=== PATIENT | female | born 1985 | race Caucasian/White ===

== ENCOUNTER 2023-12-17 17:10 | Emergency (ER) | payer OTHER, SELFPAY ==
[2023-12-17 17:22] VITALS: BP 119/75; PULSE 87; RESP 17; TEMP 36.8; O2SAT 96; BMI 54.6
--- NOTE | 2023-12-17 17:29 | ED_ITS ---
HPI - Back Pain/Injury General: Chief Complaint: Back Pain/Injury Stated Complaint: back pain, wants cortisone shot Time Seen by Provider: 12/17/23 17:28 History of Present Illness: Patient strained her back 2 nights ago while assisted to her on the toilet. Patient's has a history of CVA and requires assistance. Patient since then has had increased pain and discomfort to her low back. Patient has known history of facet arthritis. Review of Systems General: Reports: 10 or more systems reviewed and unremarkable except in HPI and below Musc: Reports: back pain Physical Exam Const: COMMON NORMALS: alert HENMT: COMMON NORMALS: normocephalic HEAD & SCALP: normocephalic Neck/C-Spine: COMMON NORMALS: full ROM Resp: COMMON NORMALS: normal respiratory effort and clear to auscultation bilaterally AUSCULTATION: clear to auscultation bilaterally Cardio: COMMON NORMALS: regular rate and regular rhythm RATE: regular rate RHYTHM: regular rhythm GI: COMMON NORMALS: Soft to palpation and non-tender PALPATION: Yes Soft to palpation Back/Pelvis: COMMON NORMALS: thoracic and lumbar spine normal to inspection Extremity: COMMON NORMALS: full ROM Neuro: SENSORIUM/ORIENTATION: Yes alert Skin: COMMON NORMALS: turgor normal GENERAL SKIN EXAM: turgor normal Course Vital Signs: Vital signs: Vital Signs Temperature 98.3 F 12/17/23 17:22 Pulse Rate 87 12/17/23 17:22 Respiratory Rate 17 12/17/23 17:22 Blood Pressure 119/75 12/17/23 17:22 Pulse Oximetry 96 12/17/23 17:22 Oxygen Delivery Me thod Room Air 12/17/23 17:22 MDM - Back Pain/Injury Medical Decision Making Patient comes in today with increased back pain. Patient has a history of facet arthritis. Patient will receive an injection of steroids at times to help with her back pain. On exam no vertebral tenderness. Patient was all extremities well. Patient ambulates without difficulty. Differential diagnosis facet arthritis, intervertebral disc disease, lumbar strain. Patient was given 30 mg of Toradol and 10 mg of dexamethasone. Patient will continue on diclofenac. Patient reports understanding of care plan and need for follow-up or return to the ER. No radiology studies performed this visit Discharge Plan Discharge Patient Disposition: Home Clinical Impression: Arthritis of facet joint of lumbar spine Low back pain Qualifiers: Chronicity: chronic Back pain laterality: unspecified Sciatica presence: without sciatica Qualified Code(s): M54.50 - Low back pain, unspecified Condition: Stable Prescriptions: New diclofenac sodium 75 mg tablet,delayed release (DR/EC) 75 mg PO BID Qty: 14 0RF Discharge Orders: Discharge ED (Routine); Ordered 12/17/23 Ordered By: Yemi Garza Referrals: Sandro Mi MD [Primary Care Provider] - Discharge Diet: Usual diet Discharge Activity: Increase activity as tolerated Patient Instructions: Back Pain (ED) Activity Restrictions/Additional Instructions: Try to maintain normal activity is much as possible. Use diclofenac for pain and inflammation. Do not use any other NSAIDs while using the diclofenac. Use ice or heat for further pain relief. Continue with routine medications as directed. Follow-up with primary care for further instructions. Thank you for choosing [facility] for your healthcare needs today. Please realize that you were seen in the emergency department and that we are providing you with an emergency medical screening exam and this may not be a complete and all exclusive of all testing and/or medical workup we may need to determine your element or severity of your illness. It is very important that you follow-up as instructed with your primary care provider or specialist for the additional evaluation and to discuss your medical treatment plan. You may return to the emergency department should you have concerns or if your condition changes or worsens in any way. Coding Level of Care Code ED Loan Servicing Specialist for Cinda Santiago
[2023-12-17] MEDS: ketorolac 30 mg/mL INJ IM (17:50)
[2023-12-17] MEDS: dexamethasone 10 mg/mL INJ IM (17:50)
== END 2023-12-17 18:04 | disposition home or self-care (01) ==
PROVIDERS: Emergency Provider Nurse Practitioner Family; PCP Family Medicine
DX: M54.50 Low back pain, unspecified (principal); M47.816 Spondylosis without myelopathy or radiculopathy, lumbar region
CPT/HCPCS: 96372; 99284; J1100; J1885

== ENCOUNTER 2024-03-10 15:29 | Emergency (ER) | payer OTHER, SELFPAY ==
[2024-03-10 16:29] VITALS: BP 129/76; PULSE 96; RESP 18; TEMP 36.8; O2SAT 96; BMI 54.6
== END 2024-03-10 18:58 | disposition left against medical advice (07) ==
PROVIDERS: Emergency Provider Family Medicine; PCP Family Medicine
DX: Z53.21 Procedure and treatment not carried out due to patient leaving prior to being seen by health care provider (principal)

== ENCOUNTER 2024-04-09 16:28 | Emergency (ER) | payer OTHER, SELFPAY ==
[2024-04-09 16:56] VITALS: BP 169/74; PULSE 98; RESP 18; TEMP 36.8; O2SAT 97; BMI 54.6
--- NOTE | 2024-04-09 18:15 | ED_ITS ---
HPI - Back Pain/Injury General: Chief Complaint: Back Pain/Injury Stated Complaint: Back pain Time Seen by Provider: 04/09/24 17:47 Source: patient Mode of arrival: ambulatory Limitations: no limitations History of Present Illness: Patient is a 38-year-old female with history of degenerative disc disease who presents the emergency department with acute on chronic lower back pain beginning today. She states that she has to lift her disabled often, but denies any recent trauma or specific injury where she reports her back pain steadily increasing. States that she was supposed to be referred to pain doctor from primary care, but has not had this happen yet. Reporting severe lower back pain that radiates down her left leg, also reports history of sciatica. Denies any recent MRI or other imaging. She is not reporting any loss of bowel or bladder function, distal numbness or paresthesias, or other concerning symptoms. She is tearful at this time secondary to pain, reporting that the pain is worsened with extension at the back and with lying flat. MD elicited complaint: back pain Pertinent past history: prior back pain Onset (ago): hour(s) Timing: constant Severity: severe Similar Symptoms Previously: Yes Location: lumbar spine Radiation: left upper leg Exacerbating factors: supine positioning Associated symptoms: Deny abdominal pain, chills, fecal incontinence, fever(s), nausea or vomiting Related Data Previous Rx's Medication Instructions Recorded diclofenac sodium 75 mg 75 mg PO BID #14 tabs 12/17/23 tablet,delayed release methocarbamol 750 mg tablet 750 mg PO Q8H 5 days #15 tabs 04/09/24 prednisone 20 mg tablet 60 mg (3 x 20 mg) PO ONCE 5 days 04/09/24 #15 tabs Allergies Allergy/AdvReac Type Severity Reaction Status Date / Time Latex, Natural Rubber Allergy ALGY-Rash Verified 04/09/24 17:01 Penicillins Allergy ALGY-Rash Verified 04/09/24 17:01 Review of Systems General: Reports: 10 or more systems reviewed and unremarkable except in HPI and below Const: Denies: fever(s) or chills Card: Denies: chest pain Resp: Denies: dyspnea or productive cough GI: Denies: abdominal pain, nausea, vomiting, diarrhea or fecal incontinence : Denies: flank pain or urinary incontinence Musc: Reports: back pain, extremity pain and limited range of motion; Denies: neck pain, extremity swelling, joint pain, joint swelling, joint redness, joint warmth or muscle weakness Skin/Breast: Denies: rash Neuro: Denies: headache(s), numbness in extremities or weakness in extremities [facility] ED Female Reproductive History: Date of last menstrual period: 04/09/24 Physical Exam Const: COMMON NORMALS: patient oriented x3, no limitations, alert and well nourished GENERAL APPEARANCE: anxious NUTRITIONAL APPEARANCE: obese morbidly obese OTHER: Appears uncomfortable in bed HENMT: COMMON NORMALS: normocephalic and atraumatic HEAD & SCALP: normocephalic and atraumatic Neck/C-Spine: COMMON NORMALS: full ROM, supple and no meningeal signs Resp: COMMON NORMALS: normal respiratory effort, No use of accessory muscles and clear to auscultation bilaterally AUSCULTATION: clear to auscultation bilaterally Cardio: COMMON NORMALS: regular rate and regular rhythm RATE: regular rate RHYTHM: regular rhythm Back/Pelvis: OTHER: No significant reproducible tenderness to palpation of the lumbar spine, sacrum, or paralumbar muscles. No signs of trauma. Straight leg raise testing positive on the left with minimal lifting needed to reproduce pain. Extremity: COMMON NORMALS: normal to inspection, full ROM, capillary refill normal, no joint enlargement and no clubbing, cyanosis or edema Neuro: COMMON NORMALS: patient oriented x3, moves all extremities, no focal motor deficits and no sensory deficits noted SENSORIUM/ORIENTATION: Yes alert MENINGEAL SIGNS: Yes no meningeal signs Skin: COMMON NORMALS: no rashes or lesions noted GENERAL SKIN EXAM: no rashes or lesions noted Course Vital Signs: Vital signs: Vital Signs Temperature 98.2 F 04/09/24 16:56 Pulse Rate 84 04/09/24 18:38 Respiratory Rate 20 H 04/09/24 18:38 Blood Pressure 123/83 04/09/24 18:38 Pulse Oximetry 95 04/09/24 18:38 Oxygen Delivery Me thod Room Air 04/09/24 18:38 MDM - Back Pain/Injury Medical Decision Making Patient presenting with acute on chronic lower back pain. No trauma or specific injury reported, no need for imaging at this time. She does report relief of pain after receiving shots of Norflex, Toradol, and Decadron. She states she has tried again with pain management but unsuccessful, will refer her to Ortho/spine for any further evaluation. Will also send in prescription for prednisone and muscle relaxer, and urged her to avoid any heavy lifting while she is resting and recovering. Other conservative therapies discussed, she is comfortable with discharge home as she is feeling better. No radiology studies performed this visit Discharge Plan Discharge Patient Disposition: Home Clinical Impression: Chronic low back pain Qualifiers: Back pain laterality: bilateral Sciatica presence: with sciatica Sciatica laterality: sciatica of left side Qualified Code(s): M54.42 - Lumbago with sciatica, left side Condition: Stable Prescriptions: New prednisone 20 mg tablet 60 mg PO ONCE 5 Days Qty: 15 0RF methocarbamol 750 mg tablet 750 mg PO Q8H 5 Days Qty: 15 0RF No Action diclofenac sodium 75 mg tablet,delayed release (DR/EC) 75 mg PO BID Qty: 14 0RF Discharge Orders: Discharge ED (Routine); Ordered 04/09/24 Ordered By: John Byrd Referrals: Sandro Mi MD [Primary Care Provider] - Patient Instructions: Lumbar Radiculopathy (ED), Lower Back Exercises (ED), Pain Management Activity Restrictions/Additional Instructions: Medications as prescribed. Follow-up with Ortho/spine. No heavy lifting, apply heat to your low back. Return with any new or worsening. Coding Level of Care Code ED Stove Tender for Cinda Santiago
[2024-04-09] MEDS: dexamethasone 10 mg/mL INJ IM (18:31)
[2024-04-09] MEDS: orphenadrine 30 mg/mL Inj 2 mL 60 MG IM (18:32)
[2024-04-09] MEDS: ketorolac 60 mg/2 mL INJ IM (18:33)
[2024-04-09 18:38] VITALS: BP 123/83; PULSE 84; RESP 20; O2SAT 95
[2024-04-09 19:08] VITALS: BP 124/81; PULSE 79; O2SAT 98
--- NOTE | 2024-04-11 10:44 | DCPLANNER ---
message sent to ortho for follow up- chronic lower back pain
== END 2024-04-09 19:09 | disposition home or self-care (01) ==
PROVIDERS: Emergency Provider Physician Assistant; PCP Family Medicine
DX: M54.42 Lumbago with sciatica, left side (principal)
CPT/HCPCS: 96372; 99284; J1100; J1885; J2360

== ENCOUNTER → 2024-04-19 12:57 | Outpatient (BNVA) | payer OTHER, SELFPAY | PROVIDERS: PCP Family Medicine; Visit Provider Orthopaedic Surgery | DX: M54.42 Lumbago with sciatica, left side (principal); G89.29 Other chronic pain; M54.41 Lumbago with sciatica, right side | CPT/HCPCS: 72110 ==

== ENCOUNTER 2024-05-01 15:29 | Emergency (ER) | payer OTHER, SELFPAY ==
[2024-05-01 16:21] VITALS: BP 148/84; PULSE 81; RESP 16; TEMP 36.7; O2SAT 99
[2024-05-01 16:27] LABS: Glucose Point of Care 359 mg/dL (70-110)
--- NOTE | 2024-05-01 17:13 | ED_ITS ---
HPI - Recheck/Abnormal Lab/Rx 2 General: Chief Complaint: Recheck/Abnormal Lab/Rx Stated Complaint: abn lab Time Seen by Provider: 05/01/24 17:09 Source: patient Mode of arrival: ambulatory Limitations: no limitations History of Present Illness: 38-year-old female is a history of type 2 diabetes she states she had recently finished a course of steroids and her blood sugars been running in the 400s she is on Ozempic and metformin she states that today she felt a little weak and tired as when I be checked out she denies any vomiting denies any diarrhea denies any fever Related Data Previous Rx's Medication Instructions Recorded diclofenac sodium 75 mg 75 mg PO BID #14 tabs 12/17/23 tablet,delayed release Allergies Allergy/AdvReac Type Severity Reaction Status Date / Time Latex, Natural Rubber Allergy ALGY-Rash Verified 05/01/24 16:28 Penicillins Allergy ALGY-Rash Verified 05/01/24 16:28 Review of Systems 2 Const: Reports: fatigue; Denies: fever(s), chills or body aches Eyes: Denies: blurry vision or eye discomfort ENMT: Denies: throat pain or dental pain Card: Denies: chest pain Resp: Denies: dyspnea GI: Denies: abdominal pain, nausea, vomiting or diarrhea Musc: Denies: neck pain or back pain Skin/Breast: Denies: rash Neuro: Denies: headache(s) PFSH ED 2 PFSH: Social History Smoking and tobacco/nicotine status: former use of tobacco/nicotine Female Reproductive History: Date of last menstrual period: 04/17/24 Physical Exam 2 Const: COMMON NORMALS: no acute distress, patient oriented x3 and healthy appearing HENMT: COMMON NORMALS: normocephalic and atraumatic HEAD & SCALP: n ormocephalic and atraumatic Neck/C-Spine: COMMON NORMALS: full ROM and supple Chest: COMMONS NORMALS: normal inspection of the chest Resp: COMMON NORMALS: normal respiratory effort Cardio: COMMON NORMALS: regular rate, regular rhythm and No murmurs present (Cardio) RATE: regular rate RHYTHM: regular rhythm Extremity: COMMON NORMALS: normal to inspection and full ROM Neuro: COMMON NORMALS: patient oriented x3, moves all extremities and no focal motor deficits Psych: COMMON NORMALS: mental status grossly normal, Normal thought process present and cooperative THOUGHT PROCESS: Normal thought process present Skin: COMMON NORMALS: no rashes or lesions noted and no wounds GENERAL SKIN EXAM: no rashes or lesions noted Course 2 Vital Signs: Vital signs: Vital Signs Temperature 98.0 F 05/01/24 16:21 Pulse Rate 80 05/01/24 17:41 Respiratory Rate 16 05/01/24 16:21 Blood Pressure 136/89 05/01/24 17:41 Pulse Oximetry 99 05/01/24 17:41 Oxygen Delivery Me thod Room Air 05/01/24 17:41 MDM - Recheck/Abnormal Lab/Rx Medical Decision Making Patient presents here with hyperglycemia blood sugar here is improved she is not in DKA she has an appoint with her primary care doctor tomorrow she likely having some hyperglycemia to her recent steroids she is well-appearing here stable for discharge follow-up PCP return if worsening Medical Records I reviewed the patient's medical records. Lab Data I reviewed the patient's lab results. 05/01/24 18:04 05/01/24 18:04 Laboratory Results WBC 7.49 10^3/uL (3.29-11.43) 05/01/24 18:04 RBC 4.78 10^6/uL (3.85-5.65) 05/01/24 18:04 Hgb 10.70 g/dL (11.27-16.99) L 05/01/24 18:04 Hct 35.9 % (36-47) L 05/01/24 18:04 MCV 75.1 fl (85-98) L 05/01/24 18:04 MCH 22.4 pg (27-33) L 05/01/24 18:04 MCHC 29.8 g/dL (30-55) L 05/01/24 18:04 RDW 15.6 % (12.1-15.1) H 05/01/24 18:04 Plt Count 250 10^3/cmm (157-399) 05/01/24 18:04 MPV 9.5 fL (7.4-10.4) 05/01/24 18:04 Neut % (Auto) 70.8 % 05/01/24 18:04 Lymph % (Auto) 19.0 % 05/01/24 18:04 [place] % (Auto) 6.0 % 05/01/24 18:04 Eos % (Auto) 3.2 % 05/01/24 18:04 Baso % (Auto) 0.7 % 05/01/24 18:04 Neut # (Auto) 5.31 10^3/uL (1.8-7.7) 05/01/24 18:04 Lymph # (Auto) 1.4 10^3/uL (0.8-4.8) 05/01/24 18:04 [place] # (Auto) 0.5 10^3/uL (0.2-0.9) 05/01/24 18:04 Eos # (Auto) 0.2 10^3/uL (0.0-0.8) 05/01/24 18:04 Baso # (Auto) 0.1 10^3/uL (0.0-0.1) 05/01/24 18:04 Nucleated RBC % (auto) 0 % 05/01/24 18:04 Nucleated RBCs # 0.0 /100WBC 05/01/24 18:04 Sodium 137 mmol/L (136-145) 05/01/24 18:04 Potassium 3.9 mmol/L (3.5-5.1) 05/01/24 18:04 Chloride 103 mmol/L (98-107) 05/01/24 18:04 Carbon Dioxide 22 mmol/L (22-29) 05/01/24 18:04 Anion Gap 15.9 (5-19) 05/01/24 18:04 BUN 11 mg/dL (6-20) 05/01/24 18:04 Creatinine 0.7 mg/dL (0.5-0.9) 05/01/24 18:04 GFR Calculation 93.2 mL/min (90-130) 05/01/24 18:04 Glucose 268 mg/dL (65-115) H 05/01/24 18:04 POC Glucose 359 mg/dL (70-110) H 05/01/24 16:25 Calculated Osmolality 293 mOsm/kg (285-295) 05/01/24 18:04 Calcium 9.6 mg/dL (8.5-10.5) 05/01/24 18:04 No radiology studies performed this visit Discharge Plan Discharge Patient Disposition: Home Clinical Impression: Hyperglycemia Condition: Stable Prescriptions: No Action diclofenac sodium 75 mg tablet,delayed release (DR/EC) 75 mg PO BID Qty: 14 0RF Discharge Orders: Discharge ED (Routine); Ordered 05/01/24 Ordered By: Benita Benavidez Referrals: Sandro Mi MD [Primary Care Provider] - 4-7 days Discharge Diet: Advance as tolerated Discharge Activity: Resume usual activity Patient Instructions: Diabetic Hyperglycemia (ED) Coding Level of Care Code ED Chemical Engineering Technologist for Cinda Santiago
[2024-05-01] MEDS: insulin regular-human 100 units/1 mL 6 UNIT IVP (17:37)
[2024-05-01 17:41] VITALS: BP 136/89; PULSE 80; O2SAT 99
[2024-05-01 18:16] LABS: Basophils # 0.1 10^3/uL (0.0-0.1); Basophils % 0.7 %; Eosinophils # 0.2 10^3/uL (0.0-0.8); Eosinophils % 3.2 %; Hematocrit 35.9 % (36-47); Lymphocytes # 1.4 10^3/uL (0.8-4.8); Mean Corpuscular HGB Conc 29.8 g/dL (30-55); Mean Corpuscular Hemoglobin 22.4 pg (27-33); Mean Corpuscular Volume 75.1 fl (85-98); Mean Platelet Volume 9.5 fL (7.4-10.4); Monocytes # 0.5 10^3/uL (0.2-0.9); Neutrophils # 5.31 10^3/uL (1.8-7.7); Neutrophils % 70.8 %; Nucleated Red Blood Cells % 0 %; Platelet Count 250 10^3/cmm (157-399); Red Blood Count 4.78 10^6/uL (3.85-5.65); Red Cell Distribution Width 15.6 % (12.1-15.1); White Blood Count 7.49 10^3/uL (3.29-11.43)
[2024-05-01 18:33] LABS: Anion Gap 15.9 (5-19); Blood Urea Nitrogen 11 mg/dL (6-20); Calcium 9.6 mg/dL (8.5-10.5); Carbon Dioxide 22 mmol/L (22-29); Chloride 103 mmol/L (98-107); Creatinine Clr Calc Pharmacy 133.0375; Glomerular Filtration Rate 93.2 mL/min (90-130); Glucose 268 mg/dL (65-115); Osmolality Calculated 293 mOsm/kg (285-295); Potassium 3.9 mmol/L (3.5-5.1); Sodium 137 mmol/L (136-145)
[2024-05-01 18:46] LABS: Glucose Point of Care 244 mg/dL (70-110)
[2024-05-01 18:54] VITALS: BP 112/82; PULSE 82; O2SAT 95
== END 2024-05-01 18:55 | disposition home or self-care (01) ==
PROVIDERS: Emergency Provider Emergency Medicine; PCP Family Medicine
DX: E11.65 Type 2 diabetes mellitus with hyperglycemia (principal); Z79.84 Long term (current) use of oral hypoglycemic drugs
CPT/HCPCS: 36416; 80048; 82962; 85025; 96374; 99284; J1815

== ENCOUNTER 2025-05-26 11:33 | Emergency (ER) | payer OTHER, SELFPAY ==
--- OUTSIDE RECORDS SUMMARY | 2025-05-26 11:37 | XMS_ITS | Continuity of Care Document ---
Author Organization [facility] Reshma Gustafson, [facility] ([facility]) Address [address] [place] [address] Care Team Providers Care Shuttle Final Inspector Name Role Phone JALIL ROBERSON Primary Care Provider Assessment No assessment recorded. Plan of Treatment Reminders Order Date Submit Date Provider Last Modified By Organization Details Last Modified Time Details Appointments None record ed. Lab None record ed. Referral None record ed. Procedures None record ed. Surgeries None record ed. Imaging None record ed. Medication Orders None record ed. Patient TargetsNo targets recorded. Patient Instructions Encounter Date Encounter Id Patient Instructions Last Modified By Organization Details Last Modified Time 03/17/2025 [id number] We discussed the back pain. Offered toradol since she hadn't refilled meloxicam but instructed her the short term effects of the shot and she declined. She's not the best candidate with diabetes for a steroid injection. I recommend she go back and see her pain management. [email or web address] Not available 03/17/2025 17:31:53 Reason for Referral None Reported. Problems Name Problem SNOMED Code Status Onset Date Resolution Date Notes Provider Name and Address Organization Details Recorded Time Osteoarthritis 934484072 [facility] 2023 [facility] Anxiety 95097990 Active 2023 [facility] Depressive disorder 65480331 Active 2023 ROSALIO gomez [facility] 5 17:40:37 Type 2 diabetes mellitus 48726135 Active 2023 ROSALIO WATSON [facility] 5 17:40:42 Post-traumatic stress disorder 93141487 Active 2023 ROSALIO WATSON [facility] 5 17:41:18 Lumbar radiculopathy 250242663 Active 2023 ROSALIO WATSON [facility] 5 17:40:54 Menorrhagia 259623432 Active 2024 ROSALIO WATSON [facility] 17:41:22 Chronic primary low back pain Active 2024 Susanaleigh White [facility] 13:34:49 Body mass index 40+ - severely obese 252388633 Active 2024 Zeinab Huntley [facility] 13:45:32 Problem Notes None recorded. Procedures Surgical History Date Name Laterality Status Provider Name and Address Organization Details Recorded Time Gallbladder Surgery completed Joleen Faustin [facility] 10/05/2023 15:19:33 Imaging Results None recorded. Procedure Notes None recorded. Medical Equipment None Reported. Allergies Allergen ID Allergen Name Allergen Category Reaction Reaction Severity Criticality Documentation Date Start Date Code Code System Note Provider Name and Address Organization Details Recorded Time 16488 penicilli n V Not available Not available Not available Not available 10/05/2023 7984 [facility] 15:16:53 44029 latex environme nt,medica tion Not available Not available Not available 10/05/2023 08198 91 [facility] 15:17:34 Medications Name Sig Start Date Stop Date Status Note LastModified by Organization Details LastModified Time Prescripti on - Prior Authorizat ion Request active Not Available Not Available Not Available methocarba mol 500 mg tablet TAKE 1 TABLET BY MOUTH THREE TIMES DAILY NEEDED FOR MUSCLE SPASM active Not Available Not Available No t Available metformin 500 mg tablet Take 1 tablet twice a day by oral route. 05/02 completed Not Available Not Available Not Available atorvastat in 20 mg tablet TAKE 1 TABLET BY MOUTH ONCE DAILY active Not Available Not Available No t Available fluconazol e 150 mg tablet 06/06 completed Not Available Not Available Not Available meloxicam 15 mg tablet TAKE 1 TABLET BY MOUTH ONCE DAILY 01/24 completed pt states that it has not helped her pain. Not Available Not Available Not Available prednisone 20 mg tablet TAKE 3 TABLETS BY MOUTH ONCE DAILY FOR 5 DAYS 05/02 completed Not Available Not Available Not Available sertraline 100 mg tablet TAKE 1 TABLET BY MOUTH ONCE DAILY active Not Available Not Available No t Available topiramate 25 mg tablet TAKE 1 TABLET BY MOUTH TWICE DAILY NEEDED FOR NERVE PAIN active Not Available Not Available No t Available tramadol 50 mg tablet TAKE 1 TABLET BY MOUTH EVERY 6 HOURS NEEDED active Not Available Not Available No t Available ketorolac 30 mg/mL (1 mL) injection solution Inject 1 mL by intramus cular route. 10/02 completed Not Available Not Available Not Available meloxicam 7.5 mg tablet TAKE 2 TABLETS BY MOUTH ONCE DAILY NEEDED FOR BACK PAIN active Not Available Not Available No t Available methocarba mol 750 mg tablet TAKE 1 TABLET BY MOUTH EVERY 8 HOURS FOR 5 DAYS 05/02 completed Not Available Not Available Not Available baclofen 10 mg tablet TAKE 1 TABLET BY MOUTH THREE TIMES DAILY 01/16 completed Not Available Not Available Not Available metformin 1,000 mg tablet TAKE 1 TABLET BY MOUTH TWICE DAILY active Not Available Not Available No t Available gabapentin 300 mg capsule TAKE 1 CAPSULE BY MOUTH THREE TIMES DAILY active Not Available Not Available No t Available diclofenac sodium 75 mg tablet,del ayed release TAKE 1 TABLET BY MOUTH TWICE DAILY 05/02 completed Not Available Not Available Not Available mirtazapin e 15 mg tablet TAKE 1/2 (ONE-PADMINI F) TABLET BY MOUTH ONCE DAILY AT BEDTIME active Not Available Not Available No t Available dexamethas one sodium phosphate 10 mg/mL injection solution Take 1 mL by injectio n route. 01/16 completed Not Available Not Available Not Available naproxen 500 mg tablet Take 1 tablet twice a day by oral route for 7 days. 05/02 completed Not Available Not Available Not Available sertraline 10/25 completed Not Available Not Available Not Available metformin 10/25 completed Not Available Not Available Not Available mirtazapin e 10/25 completed Not Available Not Available Not Available dapagliflo zin propanedio l 10 mg tablet Take 1 tablet every day by oral route. 07/25 completed Not Available Not Available Not Available Ozempic 0.25 mg or 0.5 mg (2 mg/1.5 mL) subcutaneo us pen injector Inject 0.25 mg every week by subcutan eous route. 2023 active Not Available Not Available Not Avai lable Ozempic 1 mg/dose (4 mg/3 mL) subcutaneo us pen injector INJECT 1MG EVERY WEEK BY SUB-Q ROUTE DIRECTED 05/03 completed Not Available Not Available Not Available Ozempic 2 mg/dose (8 mg/3 mL) subcutaneo us pen injector INJECT 2 MG SUB-Q ONCE A WEEK 2024 active Not Available Not Available Not Avai lable Mounjaro 2.5 mg/0.5 mL subcutaneo us pen injector INJECT 2.5 MG SUBCUTAN EOUSLY ONCE EVERY 7 DAYS 01/16 completed Not Available Not Available Not Available Ozempic 0.25 mg or 0.5 mg (2 mg/3 mL) subcutaneo us pen injector Inject by subcutan eous route for 28 days. active Not Available Not Available No t Available Vitals Date Recorded Body height Body mass index (BMI) Body weight Respiratory rate Body temperature Heart rate Oxygen saturation Systolic And Diastolic Provider Name and Address Organization Details Last Updated DateTime 152.4 cm 55.1 kg/m2 644232. 05 g 17 /min 97.5 [degF] 84 /min 98 % 112/70 mm[Hg] Jazmyne Fan [facility] 17:13:29 Social History Question Answer Notes LastModified by Organizat ion Details LastModified Time Tobacco Smoking Status Former Smoker Joleen Faustin jason, [facility] 10/05/2023 15:19:13 What Is Your Level Of Caffeine Consumption? Moderate [email or web address] Information not available 07/25/2024 What Was The Date Of Your Most Recent Tobacco Screening? 01/16/2025 [email or web address] Information not available 01/16/2025 What Is Your Current Pack Years? 10packyears [email or web address] Information not available 06/06/2024 Sex: Unknown Functional Status Question Answer Note LastModified by Organizat ion Details LastModified Time Do you use any illicit or recreational drugs? No [email or web address] Information not available 06/13/2024 What is your level of alcohol consumption? Occasional Information not available 06/13/2024 Mental Status None recorded. Family History Relationship Description Onset Age of this Age Resolved Age Notes LastModified by Organization Details LastModified Time Mother Malignant neoplastic disease [email or web address] Not available 2024 15:32:07 Maternal Grandfather Malignant neoplastic disease [email or web address] Not available 2024 15:32:07 Father Hypertensive disorder [email or web address] Not available 2024 15:32:18 Father Heart disease [email or web address] Not available 2024 15:32:33 Maternal Grandmother Diabetes mellitus [email or web address] Not available 2024 15:32:44 Medical History No medical history recorded. Gynecological HistoryNo gynecological history recorded. Obstetrics History GPAL:G 0 P 0 0 0 0 Immunizations Vaccine Type Date Status Note Provider Nam e and Address Organization Details Recorded Time COVID-19, mRNA, LNP-S, PF, 30 mcg/0.3 mL dose 07/31/2020 completed Lisa gomez, [facility] 01/13/2024 07:42:54 COVID-19, mRNA, LNP-S, PF, 30 mcg/0.3 mL dose 08/21/2020 completed Lisa gomez [facility] 01/13/2024 07:42:54 Tdap 01/03/2023 completed Lisa gomez [facility], LJosé Miguel 01/13/2024 07:42:54 Past Encounters Encounter ID Performer Location Encounter Start Date Encounter Closed Date Diagnosis/Indication Diagnosis SNOMED-CT Code Diagnosis ICD10 Code Diagnosis IMO Codes Diagnosis Note [id number] YING RILEY APRN [facility] ([facility]) [address] [place] [address] 03/17/2025 17:02:05 03/17/2025 18:09:18 Chronic low back pain 863809987 M54.50 G89.29 [id number] Health Concerns Section Related Observation LastModified by Organization Detai ls LastModified Time None Recorded Concern Status LastModified by Organization Details LastModified Time None Recorded Payers Encounter Date Sequence Insurance Name Policy Number Policy Ordonez Covered Member ID Ordonez Member ID Guarantor Name 03/17/2025 1 COLETTE RANDALL [facility] (EPO) [id number] Maureen Montano [id number] Maureen Montano Notes Date Note Type Note Provider Name and Address Organization Details Recorded Time 03/17/20 25 text/htm l Back PainReported by PatientHPIFor location, patient reportsradiation to buttocks bilateralandradiation to leg bilateralbut reportslumbar bilateral. For severity, patient reportspain level 7/10but reportsunchanged. For associated symptoms, patient reportstinglingbut reportsno weaknessandno numbness. For quality, patient reportspressureandtightness. For duration, patient reports1 1/2 weeks. For timing, patient reportschronicandrecurrent episode. For context, patient reportsprior back problems. For alleviating factors, patient reportsnone. For aggravating factors, patient reportssittingandstanding.ROS as noted in the HPI Walk In-She has had lower bilateral back pain going on for about a week & a half. It radiates into her buttock and thighs. Has not made it back to pain clinic and is wanting a shot for back with muscle relaxer and steroid. PCP-MD IYNG Morales, [facility] [address] [place], [address], [facility] [place] [facility] 03/17/2025 17:32:25 OBGyn Episode No OBEpisode recorded.
--- OUTSIDE RECORDS SUMMARY | 2025-05-26 11:37 | XMS_ITS | Data Portability ---
Author Organization [facility] Address [address] [facility] [address] [place] [address] Care Team Providers Care Ironer Sock Name Role Phone JALIL MI Primary Care Provider Assessment No assessment recorded. Plan of Treatment Reminders Order Date Submit Date Provider Last Modified By Organization Details Last Modified Time Details Appointments None recorded. Lab CMP, serum or plasma 2024 025 [employer] [facility], [address], [address], [place], [address], 5 06:20:09 microalbumi n/creatinin e, mass ratio, urine 2024 025 [employer] [facility], [address] [facility] [address] [place], [address], 5 06:20:10 hemoglobin A1C/hemoglo bin total, QN, blood [address] [facility], [address], [address], [place], [address], 5 15:12:33 Referral pain management referral 2024 025 [email or web address] Not available 5 12:07:52 gynecologis t referral [address], [address] [place] [address], [address], 16:32:45 Procedures None recorded. Surgeries None recorded. Imaging None recorded. Medication Orders ketorolac 30 mg/mL (1 mL) injection solution 2024 025 [email or web address] Not available 19:50:39 dexamethaso ne sodium phosphate 10 mg/mL injection solution 2024 025 [email or web address] Not available 14:34:46 baclofen 10 mg tablet 2024 025 [email or web address] [facility], [address], [place], [address], 14:34:38 Patient TargetsNo targets recorded. Patient Instructions Encounter Date Encounter Id Patient Instructions Last Modified By Organization Details Last Modified Time 03/17/2025 [id number] We discussed the back pain. Offered toradol since she hadn't refilled meloxicam but instructed her the short term effects of the shot and she declined. She's not the best candidate with diabetes for a steroid injection. I recommend she go back and see her pain management. 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 5 Not Available [facility] [address] [facility] [address], [place], [address], 01/18/2025 15:12:33 01/19/20 25 01/19/2025 COMPR EHENS KECIA METAB OLIC PANEL glucose 107 mg/dL 65-99 high Fasti ng refer ence inter katelynn For someo ne witho ut known diabe elsie, a gluco se value betwe en 100 and 125 mg/dL is consi stent with predi abete s and shoul d be confi rmed with a follo w-up test. Not Available [address] [address] [place], [address], 01/19/2025 06:20:09 01/19/20 25 01/19/2025 COMPR EHENS KECIA METAB OLIC PANEL urea nitrogen (BUN) 17 mg/dL 7-25 normal Not Available [address], [address], 01/19/2025 06:20:09 01/19/20 25 01/19/2025 COMPR EHENS KECIA METAB OLIC PANEL creatinine 0.78 mg/dL 0.50-0 .99 normal Not Available [address], [address], 01/19/2025 06:20:09 01/19/20 25 01/19/2025 COMPR EHENS KECIA METAB OLIC PANEL eGFR 98 mL/mi n/1.7 3m2 > or = 60 normal Not Available [address], [address], 01/19/2025 06:20:09 01/19/20 25 01/19/2025 COMPR EHENS KECIA METAB OLIC PANEL BUN/creatini ne ratio SEE NOTE: (calc ) 6-22 Not Repor sierra: BUN and Creat inine are withi n refer ence range . Not Available [address], [address], 01/19/2025 06:20:09 01/19/20 25 01/19/2025 COMPR EHENS KECIA METAB OLIC PANEL sodium 138 mmol/ L 135-14 6 normal Not Available [address], [address], 01/19/2025 06:20:09 01/19/20 25 01/19/2025 COMPR EHENS KECIA METAB OLIC PANEL potassium 4.2 mmol/ L 3.5-5. 3 normal Not Available [address], [address], 01/19/2025 06:20:09 01/19/20 25 01/19/2025 COMPR EHENS KECIA METAB OLIC PANEL chloride 108 mmol/ L 98-110 normal Not Available [address], [address], 01/19/2025 06:20:09 01/19/20 25 01/19/2025 COMPR EHENS KECIA METAB OLIC PANEL carbon dioxide 22 mmol/ L 20-32 normal Not Available [address], [address], 01/19/2025 06:20:09 01/19/20 25 01/19/2025 COMPR EHENS KECIA METAB OLIC PANEL calcium 8.8 mg/dL 8.6-10 .2 normal Not Available [address], [address], 01/19/2025 06:20:09 01/19/20 25 01/19/2025 COMPR EHENS KECIA METAB OLIC PANEL protein, total 6.7 g/dL 6.1-8. 1 normal Not Available [address], [address], 01/19/2025 06:20:09 01/19/20 25 01/19/2025 COMPR EHENS KECIA METAB OLIC PANEL albumin 4.2 g/dL 3.6-5. 1 normal Not Available [address], [address], 01/19/2025 06:20:09 01/19/20 25 01/19/2025 COMPR EHENS KECIA METAB OLIC PANEL globulin 2.5 g/dL_ (calc ) 1.9-3. 7 normal Not Available [address], [address], 01/19/2025 06:20:09 01/19/20 25 01/19/2025 COMPR EHENS KECIA METAB OLIC PANEL albumin/glob ulin ratio 1.7 (calc ) 1.0-2. 5 normal Not Available [address], [address], 01/19/2025 06:20:09 01/19/20 25 01/19/2025 COMPR EHENS KECIA METAB OLIC PANEL bilirubin, total 0.3 mg/dL 0.2-1. 2 normal Not Available [address], [address], 01/19/2025 06:20:09 01/19/20 25 01/19/2025 COMPR EHENS KECIA METAB OLIC PANEL alkaline phosphatase 93 U/L 31-125 normal Not Available [address], [address], 01/19/2025 06:20:09 01/19/20 25 01/19/2025 COMPR EHENS KECIA METAB OLIC PANEL AST 13 U/L 10-30 normal Not Available [address], [address], 01/19/2025 06:20:09 01/19/20 25 01/19/2025 COMPR EHENS KECIA METAB OLIC PANEL ALT 12 U/L 6-29 normal Not Available [address], [address], 01/19/2025 06:20:09 01/19/20 25 01/19/2025 ALBUM IN, RANDO M URINE W/CRE ATINI NE creatinine, random urine 151 mg/dL 20-275 normal Not Available [address], [address], 01/19/2025 06:20:10 01/19/20 25 01/19/2025 ALBUM IN, RANDO M URINE W/CRE ATINI NE albumin, urine 1.1 mg/dL see note: normal Refer ence Range : Refer ence Range Not estab lishe d Not Available [facility] [address] [place], [address], 01/19/2025 06:20:10 01/19/20 25 01/19/2025 ALBUM IN, RANDO M URINE W/CRE ATINI NE albumin/crea tinine ratio, random urine 7 mg/g_ creat <30 normal The ADA defin es abnor malit ies in album in excre tion as follo ws: Album inuri a Categ ory Resul t (mg/g creat inine ) Britni l to Mildl y incre ased <30 Moder ately incre ased 30-29 9 Sever jada incre ased > OR = 300 The ADA recom mends that at least two of three speci mens colle cted withi n a 3-6 month perio d be abnor mal befor e consi mary ann g a patie nt to be withi n a diagn ostic categ ory. Not Available [facility] [address] [address] [place], [address], 01/19/2025 06:20:10 Result Notes None recorded. Problems Name Problem SNOMED Code Status Onset Date Resolution Date Notes Provider Name and Address Organization Details Recorded Time Osteoarthritis 444969226 Active 2023 ROSALIO gomez [facility] 17:41:08 Anxiety 48447790 Active 2023 ROSALIO gomez [facility], [place] 17:40:27 Depressive disorder 17819878 Active 2023 ROSALIO gomez [facility], Cinthya.LHayleyCHayley 17:40:37 Type 2 diabetes mellitus 15857118 Active 2023 ROSALIO SHIRLEY [facility] 5 17:40:42 Post-traumatic stress disorder 31590326 Active 2023 ROSALIO WATSON [facility] 5 17:41:18 Lumbar radiculopathy 914847448 Active 2023 ROSALIO WATSON [facility] 5 17:40:54 Menorrhagia 676273270 Active 2024 ROSALIO WATSON [facility] 5 17:41:22 Chronic primary low back pain Active 2024 Susana White [facility] 5 13:34:49 Body mass index 40+ - severely obese 612412713 Active 2024 Zeinab Huntley [facility] 5 13:45:32 Problem Notes None recorded. Procedures Surgical History Date Name Laterality Status Provider Name and Address Organization Details Recorded Time Gallbladder Surgery completed Joleen Faustin [facility] 10/05/2023 15:19:33 Imaging Results None recorded. Procedure Notes None recorded. Medical Equipment None Reported. Allergies Allergen ID Allergen Name Allergen Category Reaction Reaction Severity Criticality Documentation Date Start Date Code Code System Note Provider Name and Address Organization Details Recorded Time 83158 penicilli n V Not available Not available Not available Not available 10/05/2023 7984 RxNorm Joleen Faustin [facility] 4 15:16:53 58625 latex environme nt,medica tion Not available Not available Not available 10/05/2023 47662 91 RxNorm Joleen Faustin [facility] 4 15:17:34 Medications Name Sig Start Date Stop [...] height Body mass index (BMI) Body weight Oxygen saturation Heart rate Respiratory rate Body temperature Systolic And Diastolic Provider Name and Address Organization Details Last Updated DateTime 152.4 cm 56.2 kg/m2 444060. 6 g 99 % 104 /min 18 /min 97.8 [degF] 120/74 mm[Hg] Susana White [facility], LJosé Miguel 01/15/202 5 14:56:13 Date Recorded Body height Body mass index (BMI) Body weight Respiratory rate Body temperature Oxygen saturation Heart rate Systolic And Diastolic Provider Name and Address Organization Details Last Updated DateTime 5 152.4 cm 56.3 kg/m2 164819 g 18 /min 97.9 [degF] 97 % 99 /min 134/78 mm[Hg] John Meng [facility] 5 15:39:28 Date Recorded Body height Body mass index (BMI) Body weight Body temperature Heart rate Oxygen saturation Systolic And Diastolic Provider Name and Address Organization Details Last Updated DateTime 5 152.4 cm 55.8 kg/m2 304244. 63 g 98.3 [degF] 98 /min 98 % 160/84 mm[Hg] Noemi Tommy [facility] 5 16:37:34 Date Recorded Body height Body mass index (BMI) Body weight Body temperature Oxygen saturation Heart rate Systolic And Diastolic Provider Name and Address Organization Details Last Updated DateTime 5 152.4 cm 54.5 kg/m2 411706. 27 g 97.8 [degF] 98 % 84 /min 114/72 mm[Hg] Zeinab Audi [facility] 5 14:29:30 Date Recorded Body height Body mass index (BMI) Body weight Respiratory rate Body temperature Heart rate Oxygen saturation Systolic And Diastolic Provider Name and Address Organization Details Last Updated DateTime 5 152.4 cm 55.1 kg/m2 789637. 05 g 17 /min 97.5 [degF] 84 /min 98 % 112/70 mm[Hg] Jazmyneaugustine Fan [facility] 5 17:13:29 Social History Question Answer Notes LastModified by Organizat ion Details LastModified Time Tobacco Smoking Status Former Smoker Joleen gomez [facility] 10/05/2023 15:19:13 What Is Your Level Of Caffeine Consumption? Moderate Information not available 07/25/2024 What Was The Date Of Your Most Recent Tobacco Screening? 01/16/2025 [email or web address] Information not available 01/16/2025 What Is Your Current Pack Years? 10packyears [email or web address] Information not available 06/06/2024 Sex: Unknown Functional Status Question Answer Note LastModified by Organizat ion Details LastModified Time Do you use any illicit or recreational drugs? No [email or web address] Information not available 06/13/2024 What is your level of alcohol consumption? Occasional [email or web address] Information not available 06/13/2024 Mental Status None recorded. Family History Relationship Description Onset Age of this Age Resolved Age Notes LastModified by Organization Details LastModified Time Mother Malignant neoplastic disease [email or web address] Not available 2024 15:32:07 Maternal Grandfather Malignant neoplastic disease [email or web address] Not available 2024 15:32:07 Father Hypertensive disorder [email or web address] Not available 2024 15:32:18 Father Heart disease [email or web address] Not available 2024 15:32:33 Maternal Grandmother Diabetes mellitus [email or web address] Not available 2024 15:32:44 Medical History No medical history recorded. Gynecological HistoryNo gynecological history recorded. Obstetrics History GPAL:G 0 P 0 0 0 0 Immunizations Vaccine Type Date Status Note Provider Nam e and Address Organization Details Recorded Time COVID-19, mRNA, LNP-S, PF, 30 mcg/0.3 mL dose 07/31/2020 completed Lisa gomez [facility]CH[facility]ley 01/13/2024 07:42:54 COVID-19, mRNA, LNP-S, PF, 30 mcg/0.3 mL dose 08/21/2020 completed Lisa gomez [facility] 01/13/2024 07:42:54 Tdap 01/03/2023 completed Lisa gomez [facility] 01/13/2024 07:42:54 Past Encounters Encounter ID Performer Location Encounter Start Date Encounter Closed Date Diagnosis/Indication Diagnosis SNOMED-CT Code Diagnosis ICD10 Code Diagnosis IMO Codes Diagnosis Note [id number] MOHINDER MARIE [facility] ([facility]) [address] [place] [id number] 10/05/2023 15:11:54 10/05/2023 15:33:18 Low back pain 814076050 M54.50 Discussed to take naproxen twice a day for next 7 days with food.Pt declines muscle relaxerApp ly a heating pad for 10 minutes every 2 hours while awake. Perform slow stretches 2 times a day.F/u with PCP in 4-5 days if symptoms persist or worsen. [id number] Jalil Mi MD [facility] ([facility]) [address] [place] [id number] 10/26/2023 14:24:40 10/26/2023 15:49:36 Chronic low back pain 443130549 M54.50 Recommend proceeding with physical therapy. Will start anti-infla mmatory and muscle relaxer to help with discomfort . Osteoarthritis 204908312 M19.90 Anxiety 33794355 F41.9 Continue sertraline . Depressive disorder 3548 9007 F32.A Type 2 marci betes mellitus 45480018 E11.9 Discussed Ozempic and is potential side effects. The patient was agreeable to start. Will start Ozempic at 0.25 mg weekly and titrate it up every month. Will obtain lab work today including A1c and microalbum in ratio. Post-traum atic stress disorder 52870949 F43.10 [id number] Jalil Mi MD [facility] ([facility]) [address] [place] [id number] 01/25/2024 14:31:19 01/25/2024 15:13:33 Chronic low back pain 931638356 M54.50 Patient has not started physical therapy at this time. Discussed pain management referral and the patient was agreeable. Bites of tramadol to help with pain management Lumbar radiculopathy 128 847378 M54.16 Will also start gabapentin to help with the radicular pain from her chronic back issues. Patient intends to follow through with physical therapy. [id number] Jalil Mi MD [facility] ([facility]) [address] [place] [phone] 05/02/2024 11:38:37 05/02/2024 13:01:02 Type 2 diabetes mellitus 09258277 E11.9 Will check A1c and microalbum in. Given history of recent elevations , will increase the dose of Ozempic to 2 mg. May need to consider other interventi ons if A1c is significan tly elevated. Chronic low back pain 27 1006634 M54.50 Continue current interventi ons. Anxiety 49216893 F41.9 Continue sertraline . Depressive disorder 3548 9007 F32.A [id number] MOHINDER MARIE [facility] ([facility]) [address] [place] [id number] 06/04/2024 16:02:17 06/06/2024 12:10:58 Dysmenorrhea 513563788 N94.6 Will start pt on different NSAID for her cramps. Discussed f/u with PCP for further testing. VSS. [id number] Jalil Mi MD [facility] ([facility]) [address] [place] [id number] 06/13/2024 14:48:30 06/13/2024 16:07:45 Menorrhagia 523415620 N92.0 The patient is interested in surgical options at this point. Patient will need referral to gynecology to proceed with those options. [id number] Jalil Mi MD [facility] ([facility]) [address] [place] [id number] 07/25/2024 15:22:14 07/25/2024 16:19:23 Lumbar radiculopathy 412471793 M54.16 the patient continues to have significan t back pain, will send referral to pain management . Patient states that she was told that the hospital did not have pain management and that is why she did not follow through with previously . The patient is wanting to try injections . Chronic low back pain 27 3734236 M54.50 We will try baclofen to see if this helps improve pain. [id number] MOHINDER MARIE [facility] ([facility]) [address] [place] [id number] 07/30/2024 16:26:05 08/02/2024 16:11:35 Chronic low back pain 277630710 M54.50 Apply a heating pad for 10 minutes every 2 hours while awake. Perform slow stretches 2 times a day. [id number] Jalil Mi MD [facility] ([facility]) [address] [place] [id number] 01/16/2025 14:15:16 01/16/2025 15:39:59 Type 2 diabetes mellitus 16654056 E11.9 Will recheck A1c today. Given the mechanism of action of Mounjaro she may benefit better from this medication and achieve her weight loss goals which should improve her overall health and decrease complicati ons. Depressive disorder 3548 9007 F32.A Doing well with sertraline . Post-traum atic stress disorder 61301926 F43.10 Body mass index 40+ - severely obese 257355244 E66.01 Z68.43 [id number] Patient is working on weight loss. Will transition to Mounjaro and see if this helps improve weight loss while still managing her blood sugars. [id number] YING RILEY APRN [facility] ([facility]) [address] [place] [id number] 03/17/2025 17:02:05 03/17/2025 18:09:18 Chronic low back pain 315187788 M54.50 G89.29 [id number] Health Concerns Section Related Observation LastModified by Organization Detai ls LastModified Time None Recorded Concern Status LastModified by Organization Details LastModified Time None Recorded Advance Directives Directive None Recorded Payers Insurance Date Sequence Insurance Name Policy Number Policy Ordonez Covered Member ID Ordonez Member ID Guarantor Name 07/23/2024 1 [facility] Maureen Montano [id number] Maureen Montano 05/01/2025 1 [employer] [facility] [id number] Maureen Montano [id number] Maureen Montano 06/04/2024 1 [employer] Maureen Montano [id number] Maureen Montano Notes Date Note Type Note Provider Name and Address Organization Details Recorded Time 06/13/19 25 text/htm l This is a 38-year-old female that comes in today to discuss menstrual issues. Patient states that she has increasing pain and bleeding with her menstrual cycle. The patient is concerned about endometriosis as she is always had significant pain with her menstrual cycles. Patient is interested in ablation or possibly hysterectomy if that is an option. Jalil Mi MD [address] [place] [address], [phone], [facility] 06/14/2024 10:40:59 07/25/19 25 text/htm l 38-year-old female comes in today for follow-up for her low back pain. Patient states that she had a recent exacerbation of her pain over the last week. Patient denies any recent injury. The patient states that her muscle relaxer has not been very helpful. The patient wanted to discuss possible injections. Jalil Mi MD [address] [place] [address], [phone], [facility] 07/26/2024 15:02:58 07/31/19 25 text/htm l FRANCES as noted in the [facility] has chronic back pain and was referred to pain management recently by her PCP. States she has went to the ER in the past and received a steroid injection that really helped her pain. Is requesting a steroid injection today if possible. States there are no new symptoms or changes to her back pain. . MOHINDER MARIE [address] [place] [address], [phone], [facility] 08/02/2024 13:25:38 01/17/20 25 text/htm l This is a 39-year-old female comes in today for follow-up. The patient is up to 2 mg of Ozempic and has plateaued on weight loss. Patient denies any significant side effects. Patient states that her mental health is doing good on current medications. Patient denies any other concerns today. Jalil Mi MD [address] [place] [address], [phone], [facility] 01/19/2025 21:38:13 03/17/20 25 text/htm l Back PainReported by [...] back with muscle relaxer and steroid. PCP-MD YING Morales, JACK SPINNER [address] [place], [phone], [place] - [facility], LJosé Miguel 03/17/2025 17:32:25 OBGyn Episode No OBEpisode recorded.
[2025-05-26 12:04] VITALS: BP 127/89; PULSE 96; TEMP 36.8; O2SAT 97; BMI 54.6
[2025-05-26 13:46] VITALS: BP 119/75; PULSE 77; RESP 18; O2SAT 96
--- NOTE | 2025-05-26 13:48 | W.ED.BACK ---
HPI - Back Pain/Injury General: Chief Complaint: Back Pain/Injury Stated Complaint: R side bottom down leg pain Time Seen by Provider: 05/26/25 13:40 History of Present Illness: Patient is a 39-year-old female, diabetic, L5-S1 DDD, presents to the emergency room due to right lower back tenderness with radiation down the side of her leg. This occurred approximately 3-4 days ago and is worsening in nature. She has tenderness from the right lower back, radiating to her right hip, and laterally down her leg. She has no groin anesthesia or numbness. She states that she has had incontinence only because she was in a hurry to go the bathroom, was having difficulty walking. She does feel herself needing to go void. No stool incontinence. Associated symptoms: Deny abdominal pain, difficulty walking, fatigue, fever(s), nausea or syncope Related Data Home Medications ?Medication ?Instructions ?Recorded ?Confirmed atorvastatin 20 mg tablet (Lipitor) 20 mg PO DAILY 08/13/24 03/27/25 metformin 1,000 mg tablet 1,000 mg PO BID 08/13/24 03/27/25 mirtazapine 7.5 mg tablet 7.5 mg PO DAILY 08/13/24 03/27/25 semaglutide 2 mg/dose (8 mg/3 mL) mg SUBCUT .weekly 08/13/24 03/27/25 subcutaneous pen injector (Ozempic) sertraline 100 mg tablet 100 mg PO DAILY 08/13/24 03/27/25 Previous Rx's ?Medication ?Instructions ?Recorded meloxicam 7.5 mg tablet 15 mg (2 x 7.5 mg) PO DAILY PRN 03/20/25 back pain #60 tabs methocarbamol 500 mg tablet 500 mg PO TID PRN muscle spasm #90 03/20/25 tabs topiramate 25 mg tablet (Topamax) 25 mg PO BID PRN nerve pain #60 03/20/25 tabs fluconazole 150 mg tablet 150 mg PO Q3D 3 doses #3 tabs 05/26/25 methylprednisolone 4 mg tablets in See Rx Instructions PO .COMPLEX 05/26/25 a dose pack (Medrol (Erwin)) #21 ea Allergies Allergy/AdvReac Type Severity Reaction Status Date / Time Latex, Natural Rubber Allergy ALGY-Rash Verified 05/26/25 12:08 Penicillins Allergy ALGY-Rash Verified 05/26/25 12:08 Review of Systems General: Reports: 10 or more systems reviewed and unremarkable except in HPI and below Const: Denies: fever(s), change in weight or fatigue Eyes: Denies: change in vision, blurry vision, blind spots, photophobia, eye discomfort, seeing flashes or other (Glaucoma) ENMT: Denies: odynophagia, hoarseness, change in hearing, tinnitus, sinus pain or other (Loss of taste/smell) Card: Denies: chest pain, palpitations, syncope or other (Calf cramps) Resp: Denies: dyspnea, non-productive cough, wheezing or hemoptysis GI: Denies: abdominal pain, nausea, heartburn, diarrhea, constipation or hematochezia : Denies: urinary frequency or urinary incontinence Musc: Reports: joint pain, joint stiffness, limited range of motion and muscle cramps; Denies: neck pain, muscle weakness or other (Muscle pain) Skin/Breast: Denies: rash, new lesions or breast mass Neuro: Denies: headache(s), numbness in extremities, weakness in extremities, sensory changes, difficulty walking, Slurred speech present or seizure-like activity Psych: Denies: depression, irritability, memory loss, difficulty concentrating or other (Personality changes) Endo: Denies: polyuria, polydipsia, excessive sweating or change in body appearance Ashish/Lymph: Denies: easy bruising, easy bleeding or enlarged lymph nodes PFSH ED PFSH: Social History Smoking and tobacco/nicotine status: never used tobacco/nicotine Physical Exam Const: COMMON NORMALS: no acute distress, patient oriented x3 and healthy appearing HENMT: COMMON NORMALS: normocephalic and atraumatic HEAD & SCALP: normocephalic and atraumatic Neck/C-Spine: COMMON NORMALS: full ROM and supple Chest: COMMONS NORMALS: normal inspection of the chest Resp: COMMON NORMALS: normal respiratory effort Cardio: COMMON NORMALS: regular rate, regular rhythm and No murmurs present (Cardio) RATE: regular rate RHYTHM: regular rhythm Back/Pelvis: THORACIC SPINE/UPPER BACK: Yes normal to inspection and Yes thoracic ROM normal LUMBAR SPINE/LOWER BACK: Yes normal to inspection and Yes lumbar ROM normal SACROILIAC JOINTS: Yes SI joint(s) abnormal SI joint details: tender to palpation SACRUM: tenderness on the right COCCYX: no tenderness Extremity: COMMON NORMALS: normal to inspection and full ROM Neuro: COMMON NORMALS: patient oriented x3, moves all extremities and no focal motor deficits Psych: COMMON NORMALS: mental status grossly normal, Normal thought process present and cooperative THOUGHT PROCESS: Normal thought process present Skin: COMMON NORMALS: no rashes or lesions noted and no wounds GENERAL SKIN EXAM: no rashes or lesions noted Course Vital Signs: Vital signs: Vital Signs Temperature 98.3 F 05/26/25 12:04 Pulse Rate 77 05/26/25 13:46 Respiratory Rate 18 05/26/25 13:46 Blood Pressure 119/75 05/26/25 13:46 Pulse Oximetry 96 05/26/25 13:46 Oxygen Delivery Me thod Room Air 05/26/25 13:46 MDM - Back Pain/Injury Medical Decision Making Patient is 39-year-old female that complains of right low back pain radiating down her right leg. This was after multiple lifting issues. She does show improvement after Toradol, Norflex, and dexamethasone. Medrol Dosepak and diclofenac was sent to the pharmacy as well as patient requested fluconazole due to history of yeast infections with steroid packs. All questions answered to her satisfaction. Medical Records I reviewed the patient's medical records. Labs I reviewed the patient's lab results. No radiology studies performed this visit Discharge Plan Discharge Patient Disposition: Home Clinical Impression: Sciatica Qualifiers: Laterality: right Qualified Code(s): M54.31 - Sciatica, right side Condition: Stable Prescriptions: New methylprednisolone [Medrol (Erwin)] 4 mg tablets,dose pack See Rx Instructions .ROUTE .COMPLEX Qty: 21 0RF Rx Instructions: for 6 days fluconazole 150 mg tablet 150 mg PO Q3D Qty: 3 0RF No Action sertraline 100 mg tablet 100 mg PO DAILY metformin 1,000 mg tablet 1,000 mg PO BID atorvastatin [Lipitor] 20 mg tablet 20 mg PO DAILY mirtazapine 7.5 mg tablet 7.5 mg PO DAILY Ozempic 2 mg/dose (8 mg/3 mL) pen injector SUBCUT .weekly topiramate [Topamax] 25 mg tablet 25 mg PO BID PRN (Reason: nerve pain) Qty: 60 5RF methocarbamol 500 mg tablet 500 mg PO TID PRN (Reason: muscle spasm) Qty: 90 5RF meloxicam 7.5 mg tablet 15 mg PO DAILY PRN (Reason: back pain) Qty: 60 5RF Discharge Orders: Discharge ED (Routine); Ordered 05/26/25 Ordered By: Yamile An Referrals: Sandro Mi MD [Primary Care Provider, Family Practice] Discharge Diet: Usual diet Discharge Activity: Limit activity as instructed Patient Instructions: Sciatica (ED), Patient Portal & Valentina Instructions Activity Restrictions/Additional Instructions: - No lifting greater than a gallon of milk - Ice to this area helps, as well as [id number] Lidoderm patches to your low right back - At the pharmacy: Medrol Dosepak, fluconazole. You indicated you have yeast infections with steroid intake. - What we discussed: You were going to call your doctor tomorrow regarding follow-up with your pain management and your acute sciatica - You received: Dexamethasone, Toradol, Norflex IM in the ED. - Return to ED if you have worsening pain, inability to walk, urinary or fecal incontinence without knowing you need to void or have a bowel movement, or numbness or tingling sensations to the groin, fever greater than 100.4 ?F Thank you for choosing [facility] for your healthcare needs today. You have been screened and evaluated and felt safe for discharge. Health conditions do change or evolve sometimes and as such it is important that you follow up with your Primary Doctor to be re checked, 3-5 days is a general good time frame for follow up. You are always welcome to return to the ED for re assessment if your symptoms are worsening or you have new concerns Print Language: [place] Islander Coding Level of Care Code ED Water System Operator for Cinda Santiago
[2025-05-26] MEDS: orphenadrine 30 mg/mL Inj 2 mL 60 MG IM (14:14)
== END 2025-05-26 14:26 | disposition home or self-care (01) ==
PROVIDERS: Emergency Provider Physician Assistant; PCP Family Medicine
DX: M54.31 Sciatica, right side (principal); Z79.84 Long term (current) use of oral hypoglycemic drugs
CPT/HCPCS: 96372; 99284; J1100; J1885; J2360